=== PATIENT | male | born 1995 | race Caucasian/White ===

== ENCOUNTER 2018-04-15 11:22 | Emergency (ER) | payer BC ==
[~2018-04-15] VITALS: Ht 188 cm; Wt 113.4 kg
[2018-04-15] MEDS ORDERED: ROBAXIN500 MG PO (11:44)
[2018-04-15] MEDS ORDERED: IBUPROFEN 800800 M1 PO (11:44)
[2018-04-15 11:50] VITALS: BP 178/104
== END 2018-04-15 11:51 | disposition home or self-care (01) ==
LOC: M.ERS 11:22
DX: S39.012A Strain of muscle, fascia and tendon of lower back, initial encounter (principal); V43.62XA Car passenger injured in collision with other type car in traffic accident, initial encounter; Y93.89 Activity, other specified; Y92.89 Other specified places as the place of occurrence of the external cause; Y99.8 Other external cause status

== ENCOUNTER 2019-05-17 18:22 | Emergency (ER) | payer BC ==
[~2019-05-17] VITALS: Ht 188 cm; Wt 108.9 kg
[~2019-05-17 18:22] MED LIST: IBUPROFEN 800800 M1 PO; ROBAXIN500 MG PO
[2019-05-17] MEDS ORDERED: IBUPROFEN 800800 M1 PO (19:51)
[2019-05-17] MEDS ORDERED: CYCLOBENZAPRINE5 MG PO (19:51)
[2019-05-17] MEDS ORDERED: PREDNISONE50 MG PO (19:51)
[2019-05-17 20:08] VITALS: BP 148/77
== END 2019-05-17 20:15 | disposition home or self-care (01) ==
LOC: M.ERS 18:22
DX: M54.5 Low back pain (principal)